=== PATIENT | male | born 1975 | race Caucasian/White ===

== ENCOUNTER 2019-03-25 14:10 | Observation (INO) ==
[2019-03-25] MEDS ORDERED: Furosemide 40 MG/4 ML VIAL IVP ONE (14:15)
--- NOTE | 2019-03-25 14:15 | Emergency Department Note ---
Disposition Clinical Impression: Acute exacerbation of CHF (congestive heart failure) Disposition: Admitted As Inpatient Condition: Fair Referrals: NONE,PCP [Primary Care Provider] - Forms: ED Satisfaction Letter, Work/School Release Time of Disposition: 17:00 SOB HPI - General Chief Complaint: ED General Medical Stated Complaint: Needs treatment for CHF Time Seen by Provider: 03/25/19 14:14 Source: patient, EMS Mode of arrival: EMS Limitations: no limitations Nursing Notes Reviewed: Yes Vital Signs Reviewed: Yes - History of Present Illness 43-year-old male who presents today by ambulance for shortness of breath. He went to urgent care first, and they transferred him up here for shortness of breath. Patient states that he has not been taking his Lasix at home like he should be. He is a chronic history of pedal edema and CHF. Patient states that he was recently seen his primary care's office and since that time is probably gained about 30-40 pounds. States that he takes the rest of his medications as he should. History of high blood pressure and heart failure only. Patient states no bipap and no o2 at home. was 90% on RA at urgent care, now on 2LNC Pt Subjective Complaint: shortness of breath - Related Data Home Medications Medication Instructions Recorded Confirmed ALPRAZolam [Xanax 1 MG Tablet] 1 mg PO DAILY 01/12/18 03/25/19 Albuterol Sulfate [Albuterol 1 puff IH Q4HR PRN 01/12/18 03/25/19 Inhaler] Atorvastatin Calcium [Lipitor] 80 mg PO DAILY 01/12/18 03/25/19 Budesonide/Formoterol 160/4.5 2 puff IH BIDR 01/12/18 03/25/19 [Symbicort 160/4.5] Clotrimazole 1% CRM [Lotrimin 1%] 1 appl TP BID 01/12/18 03/25/19 DiphenhydraMINE [Benadryl] 25 mg PO Q8HR PRN 01/12/18 03/25/19 Ferrous Sulfate [Iron] 325 mg PO BID 01/12/18 03/25/19 Fluticasone Propionate Nasal 1 spray IH DAILY 01/12/18 03/25/19 [Flonase] Folic Acid 1 mg PO DAILY 01/12/18 03/25/19 Furosemide [Lasix] 80 mg PO BID 01/12/18 03/25/19 Gabapentin [Neurontin] 300 mg PO HS 01/12/18 03/25/19 Lisinopril [Zestril] 10 mg PO DAILY 01/12/18 03/25/19 Loratadine [Allergy Relief] 10 mg PO DAILY 01/12/18 03/25/19 Metformin HCl [Glucophage] 1,000 mg PO BID 01/12/18 03/25/19 Metoprolol Tartrate [Lopressor] 50 mg PO BID 01/12/18 03/25/19 Oxycodone HCl/Acetaminophen 1 each PO Q6HR PRN 01/12/18 03/25/19 [Percocet 10-325 mg Tablet] Pioglitazone [Actos] 45 mg PO DAILY 01/12/18 03/25/19 Potassium Chloride [Klor-Con 10] 20 meq PO QID 01/12/18 03/25/19 Ranitidine HCl [Heartburn Relief] 150 mg PO BID 01/12/18 03/25/19 glipiZIDE [Glipizide] 10 mg PO BID 01/12/18 03/25/19 metOLazone [Zaroxolyn] 5 mg PO DAILY 01/12/18 03/25/19 Previous Rx's Medication Instructions Recorded Potassium Chloride 20 meq PO BID #10 tab.er.prt 01/12/18 Allergies Allergy/AdvReac Type Severity Reaction Status Date / Time Penicillins AdvReac Unknown UNKNOWN Unverified 01/12/18 17:08 ASPIRIN AdvReac See Uncoded 01/12/18 17:08 Comments Review of Systems: All other systems are negative except as noted/marked Chart generated with voice recognition software Nursing notes reviewed Old records reviewed Past Medical History - Past Medical History Attestation: Yes The following information was validated with the patient. Source: patient, old records reviewed, nursing notes reviewed Medical history: Reports: arthritis, asthma, CHF, diabetes, GERD, hyperlipidemia, hypertension, other Psychiatric history: Reports: anxiety - Social History Smoking Status: Never smoker Alcohol use: Reports: none Drug use: Reports: none Physical Exam General: NAD, VSS Head: normocephalic, atraumatic Eyes: EOMI, PERRLA mouth: moist mucous membranes Neck: NO CLA, Supple Chest wall: normal rise, no crepitus, no deformity noted Lungs: Diminished lung sounds with rales bilaterally, audible wheezing Heart: Tachycardic and regular Abd: soft, nontender, BS normal MSK: strength equal in all four extremities Ext: moves all four extremities, no obvious deformities 3+ pitting edema bilateral lower extremities Skin: cap refill normal, warm, dry neuro : CN2-12 grossly intact, A&Ox3 Psych: normal affect, not anxious Course Vital Signs Temperature 98.3 F 03/25/19 14:13 Pulse Rate 103 03/25/19 14:13 Respiratory Rate 22 03/25/19 14:13 Blood Pressure 142/85 03/25/19 14:13 O2 Sat by Pulse Oximetry 96 03/25/19 14:13 Temperature 98.4 F 03/25/19 14:40 Pulse Rate 120 03/25/19 16:32 Respiratory Rate 20 03/25/19 16:32 Blood Pressure 156/94 03/25/19 16:32 O2 Sat by Pulse Oximetry 94 03/25/19 16:32 Oxygen Delivery Oxygen Delivery Room Air Shortness of Breath/Dyspnea - [facility] Narrative Medical decision making narrative: 43-year-old male who presents today with shortness of breath from the urgent care. He is fluid overloaded and edematous. We gave him 80 of Lasix. I ordered a nitro drip forearm. We discussed BiPAP initially 1 to see how he did after the Lasix and the medications. He is on 2 L as her pain was satting 97 100%. Patient arrives today in some mild respiratory distress. Nitroglycerin and Lasix were ordered initially. We discussed doing BiPAP and ultimately decided not to do it. His laboratory today shows a mild elevation in his white count to think a stress-induced. His x-ray was clear. After 80 mg of IV Lasix he urinated 1300 ML's of fluid. He says he is feeling a better his lung sounds are improving. We stopped the nitroglycerin took the patient off oxygen he is maintaining sats of 94%. I spoke with our hospitalist who agreed to keep the patient here. Patient went [id number] about this for a while I was g oing to actually have him AGAINST MEDICAL ADVICE leave if he was not willing to stay because I really feel strongly that he needs to stay. Patient is now agreeing to stay and orders have been placed for his admission. - Medical Records Medical records reviewed: Yes I reviewed the patient's medical records. - Lab Data Lab results reviewed: Yes I reviewed the patient's lab results. Result diagrams: 03/25/19 14:44 03/25/19 14:44 Lab Results 03/25/19 03/25/19 03/25/19 Range/Units 14:36 14:44 14:44 WBC 15.3 H (4.3-11.1) K/mcL RBC 5.92 H (4.19-5.50) M/mcL Hgb 14.8 (12.9-16.9) g/dL Hct 48.9 (37.5-50.1) % MCV 82.6 L (83.0-100.0) fL MCH 25.0 L (28.0-33.3) pg MCHC 30.3 L (31.6-35.5) g/dL RDW 16.6 H (11.5-14.5) % Plt Count 174 (140-400) K/mcL MPV 11.1 (9.4-12.4) fL Immature Gran % 0.9 (0-4) % Seg Neutrophils % 80.6 % Lymphocytes % 9.8 % Monocytes % 5.4 % Eosinophils % 3.0 % Basophils % 0.3 % Neutrophils # 12.3 H (1.6-8.9) K/mcL Lymphocytes # 1.5 (0.6-4.6) K/mcL Monocytes # 0.8 (0.0-1.3) K/mcL Eosinophils # 0.5 (0.0-0.6) K/mcL Basophils # 0.1 (0.0-0.2) K/mcL PT 12.6 H (9.4-12.1) Seconds INR 1.1 APTT 36.3 H (26.0-36.0) Seconds Sample Site R Radial ABG pH 7.46 H (7.32-7.45) pH Units ABG pCO2 40 (35-45) mmHg ABG pO2 65 L (85-104) mmHg ABG HCO3 28 H (21-27) mEq/L ABG Total CO2 29 H (20-26) mEq/L ABG O2 Saturation 94 L (95-98) % ABG Base Excess 4 H (-2 to 3) mEq/L Josafat Test Positive O2 Delivery Device Cannula Inspired O2 2.0 (1-15=lpm [id number]=%) Sodium (136-145) mEq/L Potassium (3.5-5.1) mEq/L Chloride (98-107) mEq/L Carbon Dioxide (23-29) mEq/L BUN (6-20) mg/dL Creatinine (0.70-1.30) mg/dL Est GFR ( Amer) (> 60) Est GFR (Non-Af Amer) (> 60) BUN/Creatinine Ratio (6-26) Glucose (70-105) mg/dL Calculated Osmolality (280-300) Lactic Acid (0.5-2.2) mmol/L Calcium (8.6-10.3) mg/dL Total Bilirubin (0.3-1.0) mg/dL Direct Bilirubin (0.0-0.2) mg/dL Indirect Bilirubin (0.0-1.2) mg/dL AST (13-39) Units/L ALT (7-52) Units/L Alkaline Phosphatase (34-104) Units/L Troponin I (< 0.04) ng/mL B-Natriuretic Peptide (Less than 100) pg/mL Serum Total Protein (6.4-8.9) g/dL Albumin (3.5-5.7) g/dL Globulin (2.4-3.5) g/dL Albumin/Globulin Ratio (1.1-2.2) 03/25/19 03/25/19 03/25/19 Range/Units 14:44 14:44 14:44 WBC (4.3-11.1) K/mcL RBC (4.19-5.50) M/mcL Hgb (12.9-16.9) g/dL Hct (37.5-50.1) % MCV (83.0-100.0) fL MCH (28.0-33.3) pg MCHC (31.6-35.5) g/dL RDW (11.5-14.5) % Plt Count (140-400) K/mcL MPV (9.4-12.4) fL Immature Gran % (0-4) % Seg Neutrophils % % Lymphocytes % % Monocytes % % Eosinophils % % Basophils % % Neutrophils # (1.6-8.9) K/mcL Lymphocytes # (0.6-4.6) K/mcL Monocytes # (0.0-1.3) K/mcL Eosinophils # (0.0-0.6) K/mcL Basophils # (0.0-0.2) K/mcL PT (9.4-12.1) Seconds INR APTT (26.0-36.0) Seconds Sample Site ABG pH (7.32-7.45) pH Units ABG pCO2 (35-45) mmHg ABG pO2 (85-104) mmHg ABG HCO3 (21-27) mEq/L ABG Total CO2 (20-26) mEq/L ABG O2 Saturation (95-98) % ABG Base Excess (-2 to 3) mEq/L Josafat Test O2 Delivery Device Inspired O2 (1-15=lpm [id number]=%) Sodium 135 L (136-145) mEq/L Potassium 3.3 L (3.5-5.1) mEq/L Chloride 99 (98-107) mEq/L Carbon Dioxide 28 (23-29) mEq/L BUN 11 (6-20) mg/dL Creatinine 0.85 (0.70-1.30) mg/dL Est GFR ( Amer) > 60 (> 60) Est GFR (Non-Af Amer) > 60 (> 60) BUN/Creatinine Ratio 13 (6-26) Glucose 125 H (70-105) mg/dL Calculated Osmolality 281 (280-300) Lactic Acid 0.8 (0.5-2.2) mmol/L Calcium 9.1 (8.6-10.3) mg/dL Total Bilirubin 0.5 (0.3-1.0) mg/dL Direct Bilirubin 0.1 (0.0-0.2) mg/dL Indirect Bilirubin 0.4 (0.0-1.2) mg/dL AST 12 L (13-39) Units/L ALT 10 (7-52) Units/L Alkaline Phosphatase 101 (34-104) Units/L Troponin I < 0.03 (< 0.04) ng/mL B-Natriuretic Peptide 34 (Less than 100) pg/mL Serum Total Protein 7.6 (6.4-8.9) g/dL Albumin 3.6 (3.5-5.7) g/dL Globulin 4.0 H (2.4-3.5) g/dL Albumin/Globulin Ratio 0.9 L (1.1-2.2) 03/25/19 Range/Units 16:13 WBC (4.3-11.1) K/mcL RBC (4.19-5.50) M/mcL Hgb (12.9-16.9) g/dL Hct (37.5-50.1) % MCV (83.0-100.0) fL MCH (28.0-33.3) pg MCHC (31.6-35.5) g/dL RDW (11.5-14.5) % Plt Count (140-400) K/mcL MPV (9.4-12.4) fL Immature Gran % (0-4) % Seg Neutrophils % % Lymphocytes % % Monocytes % % Eosinophils % % Basophils % % Neutrophils # (1.6-8.9) K/mcL Lymphocytes # (0.6-4.6) K/mcL Monocytes # (0.0-1.3) K/mcL Eosinophils # (0.0-0.6) K/mcL Basophils # (0.0-0.2) K/mcL PT (9.4-12.1) Seconds INR APTT (26.0-36.0) Seconds Sample Site ABG pH (7.32-7.45) pH Units ABG pCO2 (35-45) mmHg ABG pO2 (85-104) mmHg ABG HCO3 (21-27) mEq/L ABG Total CO2 (20-26) mEq/L ABG O2 Saturation (95-98) % ABG Base Excess (-2 to 3) mEq/L Josafat Test O2 Delivery Device Inspired O2 (1-15=lpm [id number]=%) Sodium (136-145) mEq/L Potassium (3.5-5.1) mEq/L Chloride (98-107) mEq/L Carbon Dioxide (23-29) mEq/L BUN (6-20) mg/dL Creatinine (0.70-1.30) mg/dL Est GFR ( Amer) (> 60) Est GFR (Non-Af Amer) (> 60) BUN/Creatinine Ratio (6-26) Glucose (70-105) mg/dL Calculated Osmolality (280-300) Lactic Acid 1.0 (0.5-2.2) mmol/L Calcium (8.6-10.3) mg/dL Total Bilirubin (0.3-1.0) mg/dL Direct Bilirubin (0.0-0.2) mg/dL Indirect Bilirubin (0.0-1.2) mg/dL AST (13-39) Units/L ALT (7-52) Units/L Alkaline Phosphatase (34-104) Units/L Troponin I (< 0.04) ng/mL B-Natriuretic Peptide (Less than 100) pg/mL Serum Total Protein (6.4-8.9) g/dL Albumin (3.5-5.7) g/dL Globulin (2.4-3.5) g/dL Albumin/Globulin Ratio (1.1-2.2) - Radiology Data Radiology results reviewed: Yes I reviewed the patient's radiology results. EXAMINATION: ONE XRAY VIEW OF THE CHEST 03/25/2019 2:47 pm COMPARISON: 01/12/2018 HISTORY: ORDERING SYSTEM PROVIDED HISTORY: dyspnea Acute shortness of breath. Initial study. FINDINGS: No focal infiltrate, pleural effusion or pneumothorax is demonstrated. The cardiomediastinal silhouette is stable. There is no evidence of edema. No acute osseous abnormality is seen. XR/XR chest 1V portable IMPRESSION: No acute cardiopulmonary disease D/ / Renato Frazier MD / Renato Frazier MD Interpreting Provider: Renato Frazier MD - EKG Data EKG attestation: Yes I reviewed and interpreted this EKG. EKG results narrative: EKG interpreted by myself as sinus rhythm with a rate of 102 QTc [place] [address] elevation
[2019-03-25] MEDS ORDERED: Nitroglycerin 25 MG/250 ML INFUS..BTL IVC SCH ×2 (14:27→17:38)
[2019-03-25 14:38] LABS: ABG Base Excess 4 mEq/L (-2 to 3); ABG HCO3 28 mEq/L (21-27); ABG Oxygen Saturation 94 % (95-98); ABG PCO2 40 mmHg (35-45); ABG PH 7.46 pH Units (7.32-7.45); ABG PO2 65 mmHg (85-104); ABG TCO2 29 mEq/L (20-26)
[2019-03-25 15:01] LABS: INR 1.1; Prothrombin Time 12.6 Seconds (9.4-12.1)
[2019-03-25 15:04] LABS: Activated Partial Thrombo Time 36.3 Seconds (26.0-36.0)
[2019-03-25 15:20] LABS: Basophils # 0.1 K/mcL (0.0-0.2); Basophils % 0.3 %; Eosinophils # 0.5 K/mcL (0.0-0.6); Hematocrit 48.9 % (37.5-50.1); Hemoglobin 14.8 g/dL (12.9-16.9); Immature Granulocytes % 0.9 % (0-4); Lymphocytes # 1.5 K/mcL (0.6-4.6); Lymphocytes % 9.8 %; Mean Corpuscular HGB Conc 30.3 g/dL (31.6-35.5); Mean Corpuscular Volume 82.6 fL (83.0-100.0); Mean Platelet Volume 11.1 fL (9.4-12.4); Monocytes # 0.8 K/mcL (0.0-1.3); Monocytes % 5.4 %; Neutrophils # 12.3 K/mcL (1.6-8.9); Platelet Count 174 K/mcL (140-400); Red Blood Count 5.92 M/mcL (4.19-5.50); Red Cell Distribution Width 16.6 % (11.5-14.5); Segmented Neutrophils % 80.6 %
[2019-03-25 15:37] LABS: Alanine Aminotransferase 10 Units/L (7-52); Albumin 3.6 g/dL (3.5-5.7); Albumin/Globulin Ratio 0.9 (1.1-2.2); Alkaline Phosphatase 101 Units/L (34-104); Aspartate Amino Transferase 12 Units/L (13-39); BUN/Creatinine Ratio 13 (6-26); Bilirubin,Direct 0.1 mg/dL (0.0-0.2); Bilirubin,Indirect 0.4 mg/dL (0.0-1.2); Bilirubin,Total 0.5 mg/dL (0.3-1.0); Blood Urea Nitrogen 11 mg/dL (6-20); Calcium 9.1 mg/dL (8.6-10.3); Carbon Dioxide 28 mEq/L (23-29); Chloride 99 mEq/L (98-107); Glucose 125 mg/dL (70-105); Osmolality,Calculated 281 (280-300); Potassium 3.3 mEq/L (3.5-5.1); Sodium 135 mEq/L (136-145); Total Protein 7.6 g/dL (6.4-8.9); eGFR For Non-African Americans > 60 (> 60)
[2019-03-25 15:40] LABS: Troponin I < 0.03 ng/mL (< 0.04)
[2019-03-25] MEDS ORDERED: MOM Conc 10 ML UD.LIQ PO PRN (17:38)
[2019-03-25] MEDS ORDERED: Ondansetron 4 MG/2 ML VIAL IVP PRN (17:38)
[2019-03-25] MEDS ORDERED: Acetaminophen 325 MG TABLET PO PRN (17:38)
[2019-03-25] MEDS ORDERED: *HR* HYDROcodone/Acet 5/325 mg TABLET PO PRN (17:38)
[2019-03-25] MEDS ORDERED: Mag Hydrox/Al Hydrox/Simeth 30 ML UDC PO PRN (17:38)
[2019-03-25] MEDS ORDERED: Naloxone 0.4 MG/ML INJ IVP PRN (17:38)
[2019-03-25] MEDS ORDERED: Gabapentin 300 MG CAPSULE PO SCH (21:00)
[2019-03-25] MEDS ORDERED: ALPRAZolam 1 MG TABLET PO SCH (21:00)
[2019-03-25] MEDS: Famotidine 20 MG TABLET PO SCH (21:04)
[2019-03-25] MEDS: *HR* Metformin 500 MG TABLET PO SCH (21:04)
[2019-03-25] MEDS: *HR* GlipiZIDE 5 MG TABLET PO SCH (21:05)
[2019-03-25] MEDS: Clotrimazole 1% CRM 15 GM TUBE TP SCH (21:46)
[2019-03-25] MEDS: Budesonide/Formoterol 160/4.5 1 PUFF INH IH SCH (23:10)
[2019-03-25] MEDS ORDERED: *HR* Digoxin 0.5 MG/2 ML AMPUL IVP ONE (23:22)
[2019-03-25] MEDS ORDERED: Furosemide 20 MG/2 ML VIAL IVP ONE (23:26)
[2019-03-26 07:12] LABS: Basophils % 0.2 %; Eosinophils # 0.6 K/mcL (0.0-0.6); Eosinophils % 4.3 %; Hematocrit 46.2 % (37.5-50.1); Hemoglobin 14.4 g/dL (12.9-16.9); Lymphocytes # 1.5 K/mcL (0.6-4.6); Lymphocytes % 10.6 %; Mean Corpuscular HGB Conc 31.2 g/dL (31.6-35.5); Mean Corpuscular Hemoglobin 25.1 pg (28.0-33.3); Mean Corpuscular Volume 80.5 fL (83.0-100.0); Mean Platelet Volume 11.1 fL (9.4-12.4); Monocytes % 6.1 %; Platelet Count 222 K/mcL (140-400); Red Blood Count 5.74 M/mcL (4.19-5.50); Segmented Neutrophils % 77.8 %
[2019-03-26 07:13] LABS: Monocytes # 0.8 K/mcL (0.0-1.3); Neutrophils # 10.7 K/mcL (1.6-8.9)
[2019-03-26 07:32] LABS: BUN/Creatinine Ratio 18 (6-26); Blood Urea Nitrogen 15 mg/dL (6-20); Calcium 9.1 mg/dL (8.6-10.3); Carbon Dioxide 27 mEq/L (23-29); Chloride 98 mEq/L (98-107); Glucose 124 mg/dL (70-105); Magnesium 2.2 mg/dL (1.6-2.6); Osmolality,Calculated 280 (280-300); Potassium 3.4 mEq/L (3.5-5.1); Sodium 134 mEq/L (136-145); eGFR For Non-African Americans > 60 (> 60)
[2019-03-26] MEDS ORDERED: Furosemide 40 MG TABLET PO SCH (08:00)
[2019-03-26 08:44] VITALS: BP 137/85
[2019-03-26] MEDS ORDERED: Loratadine 10 MG TABLET PO SCH (09:00)
[2019-03-26] MEDS ORDERED: Folic Acid 1 MG TABLET PO SCH (09:00)
[2019-03-26] MEDS ORDERED: *HR* Pioglitazone 15 MG TABLET PO SCH (09:00)
[2019-03-26] MEDS ORDERED: metOLazone 5 MG TABLET PO SCH (09:00)
[2019-03-26] MEDS: Famotidine 20 MG TABLET PO SCH (09:23)
[2019-03-26] MEDS: Budesonide/Formoterol 160/4.5 1 PUFF INH IH SCH (09:23)
[2019-03-26] MEDS: *HR* GlipiZIDE 5 MG TABLET PO SCH (09:24)
[2019-03-26] MEDS: *HR* Metformin 500 MG TABLET PO SCH (09:24)
[2019-03-26] MEDS: Clotrimazole 1% CRM 15 GM TUBE TP SCH (09:32)
--- NOTE | 2019-03-26 09:53 | Internal Med History&Physical ---
Date of Encounter: 03/26/19 Time of Encounter: 09:20 Assessment and Plan (1) Dyspnea Current visit: Yes Status: Acute BN peptide normal. He had leukocytosis with left shift in emergency room which has lessened on follow-up labs today. Suspect acute bronchitis. IV Lasix was given in emergency room and dyspnea has resolved. He will restart Lasix at a dose of 40 mg twice a day. Qualifiers: Dyspnea type: shortness of breath Qualified Code(s): R06.02 - Shortness of breath; R06.00 - Dyspnea, unspecified; R06.01 - Orthopnea (2) Edema Current visit: Yes Status: Acute Possibly multifactorial etiology including high-dose Actos and Lyrica with obesity and lymphedema. He will restart Lasix as per above. He will decrease Lyrica to 200 mg twice a day from present dose of 3 times a day. His PCP can consider reducing/replacing Actos. Qualifiers: Edema type: unspecified Qualified Code(s): R60.9 - Edema, unspecified (3) Hypertension Current visit: Yes Status: Chronic Continue lisinopril and metoprolol and restart Lasix. Qualifiers: Hypertension type: essential hypertension Qualified Code(s): I10 - Essential (primary) hypertension (4) DM type 2 (diabetes mellitus, type 2) Current visit: Yes Status: Chronic Hemoglobin A1c was 6.8% on 09/09/2018. Continue glipizide and metformin. His PCP can consider reduction/discontinuation of Actos to lessen edema. Qualifiers: Diabetes mellitus snf insulin use: without local intermodal truck driver use Diabetes mellitus complication status: without complication Qualified Code(s): E11.9 - Type 2 diabetes mellitus without complications (5) Hypokalemia Current visit: Yes Status: Acute He reports home dose of KCl of 10 mEq 4 times a day. He will increase the dose to 20 mEq 4 times a day. (6) Microcytosis Current visit: Yes Status: Acute Present on all labs since November 2015. His PCP can order iron profile to further evaluate. Internal Medicine - H&P: HPI Chief complaint: Cough and dyspnea Admitted From: Emergency Dept Plans for Post Hospital Care: Home History of present illness: Mr. Kamara is a 43 year old male who came to emergency room stating he had 2 day history of increased dyspnea with wheezing and cough. He noticed worsening edema of his legs. He went to a local urgent care and was directed to emergency room. He was given IV Lasix and admitted to [facility] floor for ongoing care needs. He states his breathing has significantly improved and he wishes to be discharged home. Cardiovascular history is significant for hypertension. He reports being told he has heart failure but states he has not taken Lasix for several months because of the frequent urination it caused. He denies DVT or pulmonary embolus. He reports heart cath at least 10 years ago showed no sign ificant pathology. Respiratory history is significant for being a lifelong nonsmoker. He denies kn own chronic lung disease. He has a diagnosis of TERVER and was prescribed CPAP/BiPAP in the past but was noncompliant in use and the machine was removed from his home approximately 2016. Past Med Surg Social Fam HX - Past Medical History Medical history: arthritis, asthma, CHF, diabetes, GERD, hyperlipidemia, hypertension, other Additional medical history: degenerative disc disease, chronic pain Psychiatric history: anxiety - Past Surgical History Additional surgical history: Heart Cath - Social History Smoking Status: Never smoker Smokeless Tobacco Status: No Alcohol use: occasionally Drug use: none Internal Medicine - H&P: Meds ALPRAZolam [Xanax 1 MG Tablet] 1 mg PO DAILY 01/12/18 [History] Albuterol Sulfate [Albuterol Inhaler] 1 puff IH Q4HR PRN 01/12/18 [History] Atorvastatin Calcium [Lipitor] 80 mg PO DAILY 01/12/18 [History] Budesonide/Formoterol 160/4.5 [Symbicort 160/4.5] 2 puff IH BIDR 01/12/18 [History] Clotrimazole 1% CRM [Lotrimin 1%] 1 appl TP BID 01/12/18 [History] DiphenhydraMINE [Benadryl] 25 mg PO Q8HR PRN 01/12/18 [History] Ferrous Sulfate [Iron] 325 mg PO BID 01/12/18 [History] Fluticasone Propionate Nasal [Flonase] 1 spray IH DAILY 01/12/18 [History] Folic Acid 1 mg PO DAILY 01/12/18 [History] Furosemide [Lasix] 80 mg PO BID 01/12/18 [History] Gabapentin [Neurontin] 300 mg PO HS 01/12/18 [History] Lisinopril [Zestril] 10 mg PO DAILY 01/12/18 [History] Loratadine [Allergy Relief] 10 mg PO DAILY 01/12/18 [History] Metformin HCl [Glucophage] 1,000 mg PO BID 01/12/18 [History] Metoprolol Tartrate [Lopressor] 50 mg PO BID 01/12/18 [History] Oxycodone HCl/Acetaminophen [Percocet 10-325 mg Tablet] 1 each PO Q6HR PRN 01/12/18 [History] Pioglitazone [Actos] 45 mg PO DAILY 01/12/18 [History] Potassium Chloride 20 meq PO BID #10 tab.er.prt 01/12/18 [Rx] Potassium Chloride [Klor-Con 10] 20 meq PO QID 01/12/18 [History] Ranitidine HCl [Heartburn Relief] 150 mg PO BID 01/12/18 [History] glipiZIDE [Glipizide] 10 mg PO BID 01/12/18 [History] metOLazone [Zaroxolyn] 5 mg PO DAILY 01/12/18 [History] Allergy/AdvReac Type Severity Reaction Status Date / Time Penicillins AdvReac Unknown UNKNOWN Unverified 01/12/18 17:08 ASPIRIN AdvReac See Uncoded 01/12/18 17:08 Comments All Systems PM: A 10-system review of systems was performed and is negative for pertinent findings except as documented above in the HPI. Review of systems: Gen.: He states he has gained significant amount of fluid weight in the past few months. Cardiovascular: As per history of present illness Respiratory: As per history of present illness GI: He denies disorders of his liver gallbladder or exocrine pancreas : He denies hematuria dysuria or kidney stones Neurologic: He has diabetic peripheral neuropathy. He denies large distribution strokes or seizures. Endocrine: He was diagnosed with DM 2 approximately age 14. He has hyperlipidemia but denies thyroid disease Hematology/oncology: He denies blood disorders cancers or anemia Psychiatric: He has anxiety depression denies other mental health issues Mus[place] skeletal: He has DJD but denies gout or other bone joint or muscle disorders. - Constitutional Vitals: Temp Pulse Resp BP Pulse Ox 97.7 F 82 18 137/85 92 03/26/19 08:40 03/26/19 08:40 03/26/19 09:23 03/26/19 08:40 03/26/19 09:23 Exam: Gen.: He is a well-developed morbidly obese male sitting in chair at bedside who appears in no acute distress HEENT: Head is atraumatic and normocephalic. Eyes: EOMI. There is no scleral icterus. Mouth: Mucosa is moist. Neck: He has a large neck. There is no thyromegaly or adenopathy noted. Heart: Regular without murmurs gallops or ectopics Lungs: No wheezes or crackles are heard Abdomen: He has a very large abdomen. It is nontender to palpation. Exam is limited because he is in a seated position. 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 Dorsalis pedis and posttibial pulses are not palpable. Neurologic: Mental status: He is talkative and a good historian. Cranial ne rves: He has slightly disconjugate gaze with right eye dominant and left exotropia. He corrects his gaze to focus directly with the left eye when the right eye is covered. Smile is symmetric. Forehead wrinkles bilaterally. Tongue protrudes midline. EOMI. Motor: There is no pronator drift. Cer ebellar: Finger to nose is intact bilaterally. Skin: Warm and dry Internal Med - H&P Results - Labs CBC & Chem 7: 03/26/19 06:51 03/26/19 06:51 Labs: Short CBC 03/25/19 03/26/19 Range/Units 14:44 06:51 WBC 15.3 H 13.8 H (4.3-11.1) K/mcL Hgb 14.8 14.4 (12.9-16.9) g/dL Hct 48.9 46.2 (37.5-50.1) % Plt Count 174 222 (140-400) K/mcL Neutrophils # 12.3 H 10.7 H (1.6-8.9) K/mcL BMP 03/25/19 03/26/19 14:44 06:51 Sodium 135 L 134 L Potassium 3.3 L 3.4 L Chloride 99 98 Carbon Dioxide 28 27 BUN 11 15 Creatinine 0.85 0.85 Glucose 125 H 124 H Calcium 9.1 9.1 Cardiac Enzymes 03/25/19 Range/Units 14:44 Troponin I < 0.03 (< 0.04) ng/mL Liver Function 03/25/19 Range/Units 14:44 Total Bilirubin 0.5 (0.3-1.0) mg/dL Direct Bilirubin 0.1 (0.0-0.2) mg/dL AST 12 L (13-39) Units/L ALT 10 (7-52) Units/L Alkaline Phosphatase 101 (34-104) Units/L Albumin 3.6 (3.5-5.7) g/dL - ABG Interpretation ABG results: 03/25/19 14:36 ABG pH 7.46 H ABG pCO2 40 ABG pO2 65 L ABG HCO3 28 H ABG Total CO2 29 H ABG O2 Saturation 94 L ABG Base Excess 4 H - Impressions ITS Impressions Chest X-Ray 03/25/19 14:15 IMPRESSION: No acute cardiopulmonary disease D/ / Renato Frazier MD / Renato Frazier MD Interpreting Provider: Renato Frazier MD
--- NOTE | 2019-03-26 10:11 | Discharge Summary ---
Orders not resulted at time of discharge: Pending orders 03/25/19 14:51 Culture,Blood [] Stat Date of Encounter: 03/26/19 Time of Encounter: 09:20 - Discharge Diagnosis (1) Dyspnea Priority: Primary Status: Acute Qualifiers: Dyspnea type: shortness of breath Qualified Code(s): R06.02 - Shortness of breath; R06.00 - Dyspnea, unspecified; R06.01 - Orthopnea (2) Edema Priority: Secondary Status: Acute Qualifiers: Edema type: unspecified Qualified Code(s): R60.9 - Edema, unspecified (3) Hypertension Priority: Secondary Status: Chronic Qualifiers: Hypertension type: essential hypertension Qualified Code(s): I10 - Essential (primary) hypertension (4) DM type 2 (diabetes mellitus, type 2) Priority: Secondary Status: Chronic Qualifiers: Diabetes mellitus senior care insulin use: without joint terminal attack controller use Diabetes mellitus complication status: without complication Qualified Code(s): E11.9 - Type 2 diabetes mellitus without complications (5) Hypokalemia Priority: Secondary Status: Acute (6) Microcytosis Priority: Secondary Status: Acute Hospital course: Mr. Kamara is a 43 year old male who came to emergency room stating he had 2 day history of increased dyspnea with wheezing and cough. He noticed worsening edema of his legs. He went to a local urgent care and was directed to emergency room. He was given IV Lasix and admitted to [facility] floor for ongoing care needs. Initial orders were written by the emergency room physician. I saw him on March 26 and performed the history physical and discharge. He was given IV Lasix twice and had approximately 4600 mL urine output. Weight decreased from 190.055 kg on admission to 182.599 kg the following day. His dyspnea resolved and he felt improved and wished to be discharged home. He was agreeable to her restart Lasix. He will start at a dose of 40 mg twice a day. His PCP can determine of the dose should be titrated upward. He will continue metolazone and lisinopril also. He will increase potassium to 20 mEq 4 times a day. He will decrease Lyrica 200 mg twice a day from present dose of 3 times a day. He will follow with his PCP within 1 week. She can discuss with him requalification and compliant usage of CPAP/BiPAP for TREVER. She can also consider if Actos should be decreased/discontinued to lessen edema. - Time Spent with Patient Total time spent providing and/or coordinating discharge services: - Discharge Medications Prescriptions: Continued DiphenhydraMINE [Benadryl] 25 mg PO Q8HR PRN PRN Reason: Allergic Symptoms Ferrous Sulfate [Iron] 325 mg PO BID Atorvastatin Calcium [Lipitor] 80 mg PO DAILY Metformin HCl [Glucophage] 1,000 mg PO BID glipiZIDE [Glipizide] 10 mg PO BID Potassium Chloride [Klor-Con 10] 20 meq PO QID Pioglitazone [Actos] 45 mg PO DAILY Metoprolol Tartrate [Lopressor] 50 mg PO BID Folic Acid 1 mg PO DAILY Fluticasone Propionate Nasal [Flonase] 1 spray IH DAILY Clotrimazole 1% CRM [Lotrimin 1%] 1 appl TP BID Loratadine [Allergy Relief] 10 mg PO DAILY Oxycodone HCl/Acetaminophen [Percocet 10-325 mg Tablet] 1 each PO Q6HR PRN PRN Reason: Pain Albuterol Sulfate [Albuterol Inhaler] 1 puff IH Q4HR PRN PRN Reason: Shortness Of Breath Ranitidine HCl [Heartburn Relief] 150 mg PO BID metOLazone [Zaroxolyn] 5 mg PO DAILY Lisinopril [Zestril] 10 mg PO DAILY Budesonide/Formoterol 160/4.5 [Symbicort 160/4.5] 2 puff IH BIDR ALPRAZolam [Xanax 1 MG Tablet] 1 mg PO DAILY Changed Furosemide [Lasix] 40 mg PO BID #0 Potassium Chloride 20 meq PO QID #10 tab.er.prt Discontinued Gabapentin [Neurontin] 300 mg PO HS Home Medications: ALPRAZolam [Xanax 1 MG Tablet] 1 mg PO DAILY 01/12/18 [History] Albuterol Sulfate [Albuterol Inhaler] 1 puff IH Q4HR PRN 01/12/18 [History] Atorvastatin Calcium [Lipitor] 80 mg PO DAILY 01/12/18 [History] Budesonide/Formoterol 160/4.5 [Symbicort 160/4.5] 2 puff IH BIDR 01/12/18 [History] Clotrimazole 1% CRM [Lotrimin 1%] 1 appl TP BID 01/12/18 [History] DiphenhydraMINE [Benadryl] 25 mg PO Q8HR PRN 01/12/18 [History] Ferrous Sulfate [Iron] 325 mg PO BID 01/12/18 [History] Fluticasone Propionate Nasal [Flonase] 1 spray IH DAILY 01/12/18 [History] Folic Acid 1 mg PO DAILY 01/12/18 [History] Lisinopril [Zestril] 10 mg PO DAILY 01/12/18 [History] Loratadine [Allergy Relief] 10 mg PO DAILY 01/12/18 [History] Metformin HCl [Glucophage] 1,000 mg PO BID 01/12/18 [History] Metoprolol Tartrate [Lopressor] 50 mg PO BID 01/12/18 [History] Oxycodone HCl/Acetaminophen [Percocet 10-325 mg Tablet] 1 each PO Q6HR PRN 01/12/18 [History] Pioglitazone [Actos] 45 mg PO DAILY 01/12/18 [History] Potassium Chloride [Klor-Con 10] 20 meq PO QID 01/12/18 [History] Ranitidine HCl [Heartburn Relief] 150 mg PO BID 01/12/18 [History] glipiZIDE [Glipizide] 10 mg PO BID 01/12/18 [History] metOLazone [Zaroxolyn] 5 mg PO DAILY 01/12/18 [History] Furosemide [Lasix] 40 mg PO BID #0 03/26/19 [Rx] Potassium Chloride 20 meq PO QID #10 tab.er.prt 03/26/19 [Rx] Allergies/Adverse Reactions: Allergy/AdvReac Type Severity Reaction Status Date / Time Penicillins AdvReac Unknown UNKNOWN Unverified 01/12/18 17:08 ASPIRIN AdvReac See Uncoded 01/12/18 17:08 Comments Date of admission: 03/25/19 17:05 Primary care physician: Deidra Abrams M.D. - Constitutional Vitals: Temp Pulse Resp BP Pulse Ox 97.7 F 82 18 137/85 92 03/26/19 08:40 03/26/19 08:40 03/26/19 09:23 03/26/19 08:40 03/26/19 09:23 - Patient Status Disposition: Home, Self-Care Condition: Fair - Discharge Instructions Follow Up With: Deidra Abrams MD [Partnered Physician] - 1 week - Diet and Activity Activity: resume usual activities as tolerated Diet: diabetic diet, low fat, low cholesterol, low salt diet
--- NOTE | 2019-03-27 13:50 | Electrocardiograph Report ---
[place] [id number] Test Date: 2019-03-25 Pat Name: Kody Kamara Department: EDP-14 Room: [facility] Gender: M Roughener: : 1975 Requested By: Jennifer Story Order Number: [id number] Reading MD: Kevin Rodriguez Measurements Intervals [place] Rate: 102 P: 71 CA: 153 QRS: 63 QRSD: 88 T: 236 QT: 283 QTc: 369 Interpretive Statements Sinus tachycardia Nonspecific ST-T changes Electronically Signed On 03-27-2019 13:48:55 EDT by Kevin Rodriguez
== END 2019-03-26 11:55 | disposition home or self-care (01) ==
LOC: EMEROOPIK 14:10 → INPPIK 14:10
PROVIDERS: ADMIT Internal Medicine; ATTEND Internal Medicine